=== PATIENT | female | born 1960 | race Caucasian/White ===

== ENCOUNTER 2019-05-10 07:29 | Emergency (ER) | payer SELFPAY ==
--- NOTE | 2019-05-10 07:54 | EDPHYS ---
Physician Documentation [facility] Name: Beronica Curry Age: 58 yrs Sex: Female : 1960 Arrival Date: 05/10/2019 Time: 07:32 Bed 19 Private MD: ED Physician Wesley Solano HPI: 05/10 07:51 This 58 yrs old Female presents to ER via Ambulatory with complaints of ma2 Allergic Reaction. 07:51 The patient presents with itching, rash. Onset: The symptoms/episode began/occurred ma2 gradually, 2 day(s) ago. Associated signs and symptoms: Pertinent negatives: chest pain, headache, Light headed. Possible causes: The patient has no known obvious cause for the symptoms. Severity of symptoms: At their worst the symptoms were mild in the emergency department the symptoms are unchanged. The patient has not experienced similar symptoms in the past. Historical: - Allergies: 07:45 Bactrim; ss - Home Meds: 07:45 None [Active]; ss - PMHx: 07:45 None; ss - PSHx: 07:45 Appendectomy; ss - Immunization history:: Adult Immunizations up to date. - Social history:: Smoking status: Patient/guardian denies using tobacco, Patient/guardian denies using alcohol, street drugs, The patient lives with family. - Ebola Screening: : Patient denies exposure to infectious person Patient denies travel to an Ebola-affected area in the 21 days before illness onset. - Family history:: not pertinent. - Hospitalizations: : No recent hospitalization is reported. ROS: 07:51 Constitutional: Negative for fever, chills, and weight loss. ma2 07:51 All other systems are negative. Exam: 07:51 Constitutional: This is a well developed, well nourished patient who is awake, alert, ma2 and in no acute distress. Neck: Trachea midline, no thyromegaly or masses palpated, and no cervical lymphadenopathy. Supple, full range of motion without nuchal rigidity, or vertebral point tenderness. No Meningismus. Chest/axilla: Normal chest wall appearance and motion. Nontender with no deformity. No lesions are appreciated. Cardiovascular: Regular rate and rhythm with a normal S1 and S2. No gallops, murmurs, or rubs. Normal PMI, no JVD. No pulse deficits. Respiratory: Lungs have equal breath sounds bilaterally, clear to auscultation and percussion. No rales, rhonchi or wheezes noted. No increased work of breathing, no retractions or nasal flaring. Abdomen/GI: Soft, non-tender, with normal bowel sounds. No distension or tympany. No guarding or rebound. No evidence of tenderness throughout. 07:51 Skin: rash a mild rash is noted, and is diffusely located, hives. Vital Signs: 07:45 BP 163 / 96; Pulse 78; Resp 16; Temp 98.6(TE); Pulse Ox 100% on R/A; Weight 74.84 kg; ss Height 5 ft. 9 in. (175.26 cm); Pain 0/10; 08:30 BP 144 / 90; Pulse 72; Resp 18 S; Pulse Ox 100% on R/A; Pain 0/10; aa5 07:45 Body Mass Index 24.37 (74.84 kg, 175.26 cm) ss MDM: 07:33 Patient medically screened. ma2 07:51 Differential diagnosis: Mastocystosis non IgE mediated drug reaction urticaria, ma2 Vasovagal Reactions. Data reviewed: vital signs, nurses notes. Counseling: I had a detailed discussion with the patient and/or guardian regarding: the historical points, exam findings, and any diagnostic results supporting the discharge/admit diagnosis, the presence of at least one elevated blood pressure reading (>120/80) during this emergency department visit, the need for outpatient follow up. Response to treatment: the patient's symptoms have markedly improved after treatment. Administered Medications: 08:18 Drug: MethylPREDNISolone Sodium Succinate 125 mg Route: IM; Site: right gluteus; aa5 08:40 Follow up: Response: No adverse reaction aa5 08:18 Drug: Benadryl 50 mg Route: IM; Site: right deltoid; aa5 08:40 Follow up: Response: No adverse reaction aa5 Disposition: 05/10/19 07:53 Discharged to Home. Impression: Urticaria, unspecified. - Condition is Stable. - Discharge Instructions: Hives, Allergies, Xgop-ae-Aeyy. - Prescriptions for Benadryl 25 mg Oral Capsule - take 1 capsule by ORAL route every 6 hours As needed; 30 tablet. Medrol (Angelito) 4 mg Oral Tablets, Dose Pack - take 1 tablet by ORAL route as directed - follow package instructions; 1 packet. Pepcid 20 mg Oral Tablet - take 1 tablet by ORAL route once daily for 10 days; 10 tablet. - Medication Reconciliation Form, Thank You Letter, Antibiotic Education, Prescription Opioid Use form. - Follow up: Private Physician; When: Tomorrow; Reason: Continuance of care. Signatures: Coco Nichole RN RN aa5 Chinyere Posadas RN RN Wesley Solano MD MD ma2 Corrections: (The following items were deleted from the chart) 09:15 07:53 05/10/2019 07:53 Discharged to Home. Impression: Urticaria, unspecified. aa5 Condition is Stable. Forms are Medication Reconciliation Form, Thank You Letter, Antibiotic Education, Prescription Opioid Use. Follow up: Private Physician; When: Tomorrow; Reason: Continuance of care. ma2
--- NOTE | 2019-05-10 07:54 | ER ---
Nurse's Notes [facility] Name: Beronica Curry Age: 58 yrs Sex: Female : 1960 Arrival Date: 05/10/2019 Time: 07:32 Bed 19 Private MD: Diagnosis: Urticaria, unspecified Presentation: 05/10 07:41 Presenting complaint: Patient states: rash to face, neck, axilla and bilateral hands ss that began 5 days ago, but is much worse this morning. Transition of care: patient was not received from another setting of care. Onset: The symptoms/episode began/occurred 5 day(s) ago. Anaphylaxis evaluation, no signs or symptoms of anaphylaxis were noted. Onset of symptoms was May 05, 2019. Risk Assessment: Do you want to hurt yourself or someone else? Patient reports no desire to harm self or others. Initial Sepsis Screen: Does the patient meet any 2 criteria? No. Patient's initial sepsis screen is negative. Does the patient have a suspected source of infection? No. Patient's initial sepsis screen is negative. Care prior to arrival: None. 07:41 Method Of Arrival: Ambulatory ss 07:41 Acuity: MARGA 5 ss Historical: - Allergies: 07:45 Bactrim; ss - Home Meds: 07:45 None [Active]; ss - PMHx: 07:45 None; ss - PSHx: 07:45 Appendectomy; ss - Immunization history:: Adult Immunizations up to date. - Social history:: Smoking status: Patient/guardian denies using tobacco, Patient/guardian denies using alcohol, street drugs, The patient lives with family. - Ebola Screening: : Patient denies exposure to infectious person Patient denies travel to an Ebola-affected area in the 21 days before illness onset. - Family history:: not pertinent. - Hospitalizations: : No recent hospitalization is reported. Screenin:50 Abuse screen: Denies threats or abuse. Nutritional screening: No deficits noted. aa5 Tuberculosis screening: No symptoms or risk factors identified. Fall Risk None identified. Assessment: 07:50 General: Appears uncomfortable, Behavior is calm, cooperative. Pain: Denies pain. aa5 Neuro: Level of Consciousness is awake, alert, obeys commands, Oriented to person, place, time, situation. Cardiovascular: Heart tones S1 S2 present Rhythm is regular. Respiratory: Airway is patent Respiratory effort is even, unlabored, Respiratory pattern is regular, symmetrical, Breath sounds are clear bilaterally. GI: No signs and/or symptoms were reported involving the gastrointestinal system. : No signs and/or symptoms were reported regarding the genitourinary system. EENT: No signs and/or symptoms were reported regarding the EENT system. Derm: Skin is pink, warm \T\ dry. Rash noted that is itchy, red, on face, neck, jesusita hands, and axilla. Musculoskeletal: Range of motion: intact in all extremities. 09:13 Reassessment: Patient is alert, oriented x 3, equal unlabored respirations, skin aa5 warm/dry/pink. Vital Signs: 07:45 BP 163 / 96; Pulse 78; Resp 16; Temp 98.6(TE); Pulse Ox 100% on R/A; Weight 74.84 kg; ss Height 5 ft. 9 in. (175.26 cm); Pain 0/10; 08:30 BP 144 / 90; Pulse 72; Resp 18 S; Pulse Ox 100% on R/A; Pain 0/10; aa5 07:45 Body Mass Index 24.37 (74.84 kg, 175.26 cm) ED Course: 07:32 Patient arrived in ED. mr 07:33 Wesley Solano MD is Attending Physician. ma2 07:37 Coco Nichole, RN is Primary Nurse. aa5 07:43 Triage completed. ss 07:45 Arm band placed on right wrist. ss 07:50 Patient has correct armband on for positive identification. Bed in low position. Call aa5 light in reach. Side rails up X 1. 09:13 No provider procedures requiring assistance completed. Patient did not have IV access aa5 during this emergency room visit. Administered Medications: 08:18 Drug: MethylPREDNISolone Sodium Succinate 125 mg Route: IM; Site: right gluteus; aa5 08:40 Follow up: Response: No adverse reaction aa5 08:18 Drug: Benadryl 50 mg Route: IM; Site: right deltoid; aa5 08:40 Follow up: Response: No adverse reaction aa5 Outcome: 07:53 Discharge ordered by . ma2 09:13 Discharged to home ambulatory. aa5 09:13 Condition: stable 09:13 Discharge instructions given to patient, Instructed on discharge instructions, follow up and referral plans. medication usage, Demonstrated understanding of instructions, follow-up care, medications, Prescriptions given X 3. 09:15 Patient left the ED. [email or web address] Signatures: Dayanara Alarcon Audri RN RN aa5 Chinyere Posadas RN RN ss Wesley Solano MD MD ma2
[2019-05-10] MEDS ORDERED: METHYLPREDNISOLONE 125 MG INJ ONE (08:15)
[2019-05-10] MEDS ORDERED: DIPHENHYDRAMINE 50 MG/ML VIAL ONE (08:15)
== END 2019-05-10 09:15 | disposition home or self-care (01) ==
LOC: ER 07:29
DX: L50.9 Urticaria, unspecified (principal); Z88.1 Allergy status to other antibiotic agents
CPT/HCPCS: 96372; 99283; J2930